=== PATIENT | female | born 1955 | race Hispanic/Latino ===

== ENCOUNTER → 2021-06-02 | Day surgery (SDC) | payer OTHER ==
[~2021-06-02] MED LIST: CRESTOR10 MG PO; FENTANYL CITRATE/PF 100MCG/2 ML INJ ONE; LEVOTHYROXINE100 MC1 PO; LIDOCAINE HCL 2% LOCAL INJ 5 ML SDV VIAL INJ ONE; LOSARTAN POTASS25 MG PO; METFORMIN HCL500 MG PO; METOCLOPRAMIDE HCL 10 MG/2ML VIAL ONE; MIDAZOLAM HCL 2 MG/2 ML VIAL ONE; PROPOFOL IV EMULSION 10 MG/ML 20 ML VIAL ONE; VIT D PO
[2021-06-02 16:05] VITALS: BP 130/69
== END | disposition home or self-care (01) ==
LOC: OR 13:11
PROVIDERS: ATTEND Internal Medicine Gastroenterology
DX: Z12.11 Encounter for screening for malignant neoplasm of colon (principal); Q43.8 Other specified congenital malformations of intestine; K59.00 Constipation, unspecified; K30 Functional dyspepsia; E11.9 Type 2 diabetes mellitus without complications; E03.9 Hypothyroidism, unspecified; I10 Essential (primary) hypertension; R51.9 Headache, unspecified; Z01.810 Encounter for preprocedural cardiovascular examination; Z01.812 Encounter for preprocedural laboratory examination; Z20.822 Contact with and (suspected) exposure to COVID-19; Z79.84 Long term (current) use of oral hypoglycemic drugs; Z79.899 Other long term (current) drug therapy; Z79.1 Long term (current) use of non-steroidal anti-inflammatories (NSAID); Z68.41 Body mass index [BMI] 40.0-44.9, adult
CPT/HCPCS: 36415; 45378; 82948; 93005; J2001; J2250; J2704; J2765; J3010; U0002